=== PATIENT | female | born 1955 | race Caucasian/White ===

== ENCOUNTER 2017-04-20 05:34 | Outpatient (CLI) | payer BC ==
[~2017-04-20] VITALS: Ht 157.5 cm; Wt 128.1 kg
[~2017-04-20 05:34] MED LIST: CIPR-225 PO; CYCL10TA9 PO; FURO20TA4 PO; HYDR-3812 PO; HYOS0.1283 SL; LEVO50TA6 PO; LISI-552 PO; METR500T PO; NAPR500T PO; ONDA8TAB6 PO; OXYC-529 PO; PHEN200C3 PO; PHEN300C4 PO; SIMV20TA3 PO; TOPI100T11 PO
[2017-04-20] MEDS ORDERED: PHEN100C11 PO ×2 (11:56)
[2017-04-20] MEDS ORDERED: TOPI100T11 PO (11:56)
== END 2017-04-20 12:06 ==
LOC: PREOP 05:34
PROVIDERS: ATTEND Surgery
DX: Z01.818 Encounter for other preprocedural examination (principal); K43.2 Incisional hernia without obstruction or gangrene

== ENCOUNTER 2017-04-25 08:18 | Day surgery (SDC) | payer BC ==
[~2017-04-25] VITALS: Ht 157.5 cm; Wt 128.1 kg
[~2017-04-25 08:18] MED LIST changes: +PHEN100C11 PO
--- OUTSIDE RECORDS SUMMARY | 2017-04-25 08:28 | XMS REPORT ---
Author [facility] Address [address] [place] [address] Care Team Providers Care Car Shakeout Operator Name Role Phone DAVID SAHA Unavailable PROBLEMS Type Condition ICD9-CM Code [id number] Code Onset Dates Condition Status SNOMED Code Problem Benign essential hypertension I10 Active 9063384 Problem Hypothyroidism, unspecified type E03.9 Active 51488892 Problem PVD (peripheral vascular disease) I73.9 Active 465724948 Problem Pain in right knee M25.561 Active 57655230 Problem Pain in left knee M25.562 Active 678640677244428 Problem Morbid (severe) obesity due to excess calories E66.01 Active 290973369 Problem Seizure disorder G40.909 Active 720575016 Problem Osteoarthritis of both knees, unspecified osteoarthritis type M17.0 Active 204797908 Problem Hyperlipidemia, unspecified hyperlipidemia type E78.5 Active 39353199 Problem Edema, unspecified type R60.9 Active 483510621 Problem Primary osteoarthritis of both knees M17.0 Active 997162506 ALLERGIES Substance Reaction Event Type Date Status Darvocet A500 Unknown Drug Allergy October, Active Celebrex Unknown Drug Allergy October, Active SOCIAL HISTORY Never Assessed PLAN OF CARE Activity Details Follow Up 6 Months Reason:BP/edema VITAL SIGNS Height 62 in 2016-10-13 Weight 278.4 lbs 2016-10-13 Temperature 98.2 degrees Fahrenheit 2016-10-13 Heart Rate 72 bpm 2016-10-13 Respiratory Rate 18 2016-10-13 BMI 50.91 kg/m2 2016-10-13 Blood pressure systolic 122 mmHg 2016-10-13 Blood pressure diastolic 66 mmHg 2016-10-13 MEDICATIONS Medication Instructions Dosage Frequency Start Date End Date Duration Status Acetaminophen 500 MG Orally as needed for pain 2 capsules October, Active Levothyroxine Sodium 50 MCG TAKE ONE TABLET BY MOUTH DAILY. Active Hydrocodone-Acetaminophen 5-325 MG Orally 2 times a day 1 tablet as needed 12h Active Simvastatin 20 mg Orally Once a day 1 tablet in the evening 24h Active Lisinopril 20 mg Orally Once a day 1 tablet 24h Active Furosemide 20 mg Orally Once a day 1 tablet 24h Active Cyclobenzaprine HCl 10 MG Orally Three times a day 1 tablet 8h Active Phenytoin Sodium Extended 100 MG Orally Twice a day 2am and 3 in the pm capsule 12h Active Topiramate 100 MG Orally Twice a day 1 tablet 12h Active RESULTS Name Result Date Reference Range DILANTIN 2016-10-13 Phenytoin (Dilantin), Serum 15.3 10.0-20.0 CBC 2016-10-13 WBC 5.2 3.4-10.8 RBC 3.97 3.77-5.28 Hemoglobin 12.0 11.1-15.9 Hematocrit 36.7 34.0-46.6 MCV 92 79-97 MCH 30.2 26.6-33.0 MCHC 32.7 31.5-35.7 RDW 13.6 12.3-15.4 Platelets 222 150-379 Neutrophils 52 Lymphs 36 Monocytes 9 Eos 3 Basos 0 Immature Cells Neutrophils (Absolute) 2.7 1.4-7.0 Lymphs (Absolute) 1.9 0.7-3.1 Monocytes(Absolute) 0.5 0.1-0.9 Eos (Absolute) 0.2 0.0-0.4 Baso (Absolute) 0.0 0.0-0.2 Immature Granulocytes 0 Immature Grans (Abs) 0.0 0.0-0.1 NR Hematology Comments: LIPID PANEL 2016-10-13 Cholesterol, Total 165 100-199 Triglycerides 79 0-149 HDL Cholesterol 52 >39 VLDL Cholesterol True 16 5-40 LDL Cholesterol Calc 97 0-99 Comment: CMP 2016-10-13 Glucose, Serum 89 65-99 BUN 17 8-27 Creatinine, Serum 0.83 0.57-1.00 eGFR If NonAfricn Am 75 >59 eGFR If Africn Am 87 >59 BUN/Creatinine Ratio 20 12-28 Sodium, Serum 144 134-144 Potassium, Serum 4.5 3.5-5.2 Chloride, Serum 111 96-106 Carbon Dioxide, Total 23 18-29 Calcium, Serum 9.0 8.7-10.3 Protein, Total, Serum 6.4 6.0-8.5 Albumin, Serum 3.7 3.6-4.8 Globulin, Total 2.7 1.5-4.5 A/G Ratio 1.4 1.2-2.2 Bilirubin, Total 0.2 0.0-1.2 Alkaline Phosphatase, S 114 39-117 AST (SGOT) 9 0-40 ALT (SGPT) 6 0-32 PROCEDURES Procedure Date Ordered Result Body Site COMPLETE CBC W/AUTO DIFF WBC October 13, 2016 COMPREHEN METABOLIC PANEL October 13, 2016 ASSAY OF PHENYTOIN, TOTAL October 13, 2016 LIPID PANEL October 13, 2016 VENIPUNCT, ROUTINE* October 13, 2016 IMMUNIZATIONS No Known Immunizations MEDICAL (GENERAL) HISTORY Type Description Date Medical History seizures- dx age 53s. - MRI of brain showed mod atrophy and small vessel ischemic changes Medical History hypertension Medical History chronic bilat knee - Left knee xray 2014- severe DJD Medical History Moderate restrictive defect PFT 2010 Surgical History hysterectomy, total with bilateral salpingo-oophorectomy (BSO )- heavy bleeding Surgical History tubal ligation Surgical History tonsillectomy Surgical History Colonoscopy- normal 2011 Surgical History Cataract 08/2015 Surgical History cataract 09/2015 Surgical History [facility]el[facility] 11/30/15 Hospitalization History ED visit [facility] knee pain October 2014 Hospitalization History Cholecystitis, chronic calculous--[facility] 11/27/15
--- OUTSIDE RECORDS SUMMARY | 2017-04-25 08:29 | XMS REPORT ---
Author Author DAVID ASHA [facility] Address [address] [place] [address] Care Team Providers Care Caustic Mixer Name Role Phone DAVID SAHA Unavailable PROBLEMS Type Condition ICD9-CM Code [id number] Code Onset Dates Condition Status SNOMED Code Problem Benign essential hypertension I10 Active 4204462 Problem Hypothyroidism, unspecified type E03.9 Active 64479382 Problem PVD (peripheral vascular disease) I73.9 Active 600502052 Problem Pain in right knee M25.561 Active 60868886 Problem Pain in left knee M25.562 Active 964414576847373 Problem Morbid (severe) obesity due to excess calories E66.01 Active 247674437 Problem Seizure disorder G40.909 Active 149054457 Problem Osteoarthritis of both knees, unspecified osteoarthritis type M17.0 Active 946544476 Problem Hyperlipidemia, unspecified hyperlipidemia type E78.5 Active 50000826 Problem Edema, unspecified type R60.9 Active 273786717 Problem Primary osteoarthritis of both knees M17.0 Active 844775231 ALLERGIES No Information SOCIAL HISTORY Never Assessed PLAN OF CARE VITAL SIGNS MEDICATIONS Medication Instructions Dosage Frequency Start Date End Date Duration Status Phenytoin Sodium Extended 100 mg Orally Twice a day 2 capsules in the am and 3 capsules in the pm 12h 0 days Active RESULTS No Results PROCEDURES No Known procedures IMMUNIZATIONS No Known Immunizations MEDICAL (GENERAL) HISTORY [...] [facility] knee pain October 2014 Hospitalization History Cholecystitis, chronic calculous--[facility] 11/27/15
--- OUTSIDE RECORDS SUMMARY | 2017-04-25 08:29 | XMS REPORT ---
Author [facility] Address [address] [place] [address] Care Team Providers Care Collateral Specialist Name Role Phone DAVID SAHA Unavailable PROBLEMS Type Condition ICD9-CM Code [id number] Code Onset Dates Condition Status SNOMED Code Problem Benign essential hypertension I10 Active 9974997 Problem Hypothyroidism, unspecified type E03.9 Active 62856056 Problem PVD (peripheral vascular disease) I73.9 Active 257773019 Problem Pain in right knee M25.561 Active 74733972 Problem Pain in left knee M25.562 Active 332460582384008 Problem Morbid (severe) obesity due to excess calories E66.01 Active 273517623 Problem Seizure disorder G40.909 Active 080736902 Problem Osteoarthritis of both knees, unspecified osteoarthritis type M17.0 Active 849254552 Problem Hyperlipidemia, unspecified hyperlipidemia type E78.5 Active 90089254 Problem Edema, unspecified type R60.9 Active 175181056 Problem Primary osteoarthritis of both knees M17.0 Active 335838696 ALLERGIES No Information SOCIAL HISTORY Never Assessed PLAN OF CARE VITAL SIGNS MEDICATIONS Unknown Medications RESULTS No Results PROCEDURES No Known procedures [...] 08/2015 Surgical History cataract 09/2015 Surgical History [facility] Wolf[facility] 11/30/15 Hospitalization History ED visit [facility] knee pain October 2014 Hospitalization History Cholecystitis, chronic calculous--[facility] 11/27/15
[2017-04-25 08:35] VITALS: BP 131/57
--- NOTE | 2017-04-25 08:51 | Progress Note-Pre Operative ---
Pre-Operative Progress Note H&P Reviewed The H&P was reviewed, patient examined and no changes noted. Date Seen by Provider: Apr 25, 2017 Time Seen by Provider: 08:45 Date H&P Reviewed: Apr 25, 2017 Time H&P Reviewed: 08:50 Pre-Operative Diagnosis: Symptomatic ventral abdominal incisional hernia LARISSA LAUGHLIN APRN Apr 25, 2017 8:51 am
[2017-04-25] MEDS ORDERED: ONDANSETRON 4 MG/2 ML (SDV) Z0FRAN IVP PRN ×2 (09:00→14:30)
[2017-04-25] MEDS ORDERED: morphine INJ 10 MG/ML 1ML (SYR OR VIAL) IVP PRN ×2 (09:00→14:30)
[2017-04-25] MEDS ORDERED: FAMOTIDINE 20MG/2ML IV (PEPCID) IV ONE (09:00)
[2017-04-25 09:10] LABS: RED BLOOD COUNT 3.81 10^6/uL (4.35-5.85); RED CELL DISTRIBUTION WIDTH 13.1 % (10.0-14.5); WHITE BLOOD COUNT 5.2 10^3/uL (4.3-11.0)
[2017-04-25] MEDS ORDERED: ACETAMINOPHEN 325 MG TABLET/CAPLET (TYLENOL) PO PRN (09:15)
[2017-04-25] MEDS ORDERED: HYDROcodone/APAP 5 MG/325 MG (LORTAB) TAB PO ONE (09:15)
[2017-04-25] MEDS ORDERED: ceFAZolin 1 GM/NS 50 ML IVPB IV ONE ×2 (09:15)
[2017-04-25] MEDS ORDERED: CATHETER FLUSH 10 ML SYR IV PRN (09:15)
[2017-04-25] MEDS: LACTATED RINGERS 1,000 ML IV PRN ×2 (09:22→12:33)
[2017-04-25] MEDS ORDERED: BUP/EPI 0.5% 1:200,000 (MARCAINE) 10ML VIAL IJ ONE (11:35)
[2017-04-25] MEDS ORDERED: fentaNYL INJECTION 100 MCG/2 ML AMP ONE (11:46)
[2017-04-25] MEDS ORDERED: MIDAZOLAM 2 MG/2 ML (VERSED) VIAL ONE (11:46)
--- NOTE | 2017-04-25 13:48 | Progress Note-Post Operative ---
Post-Operative Progess Note Surgeon (s)/Fisheries Enforcement Officer (s) Surgeon SANJEEV VERA MD Fisheries Enforcement Officer: adrien aparicio DI[employer]OND CLEANER Pre-Operative Diagnosis Symptomatic ventral abdominal incisional hernia Post-Operative Diagnosis same(6x6cm) Procedure & Operative Findings Date of Procedure 04/25/17 Procedure Performed/Findings open ventral abdominal incisional hernia repair with mesh. Anesthesia Type GET Estimated Blood Loss Estimated blood loss (mL): minimal Specimens/Packing Specimens Removed hernia sac SANJEEV VERA MD Apr 25, 2017 1:48 pm
[2017-04-25] MEDS ORDERED: HYDR-3816 PO (13:51)
[2017-04-25] MEDS ORDERED: ROCURONIUM 50 MG/5 ML (ZEMURON) VIAL IV ONE ×2 (13:53)
[2017-04-25] MEDS ORDERED: ONDANSETRON 4 MG/2 ML (SDV) Z0FRAN ONE (13:53)
[2017-04-25] MEDS ORDERED: SEVOFLURANE (ULTANE) 15 ML INHAL SOLN ONE (13:53)
[2017-04-25] MEDS ORDERED: DEXAMETHASONE 10 MG/ML (DECADRON) 1 ML VIAL ONE (13:53)
--- NOTE | 2017-04-25 13:53 | Discharge Inst-Surgical ---
D/C Lap Instructions-CHUY New, Converted, or Re-Newed RX: RX on Chart Follow Up Appt in 2 weeks Activity as tolerated No driving for 24 hours No [address] while on pain medications Incentive Spirometry use every 2 hours while awake Regular Diet Symptoms to Report: Fever over 101 degree F, Nausea/Vomiting Infection Signs and Symptoms to report: Increased redness, Foul odor of wound, Increased drainage Bathing instructions: May shower Operative Area Clean/Dry; Keep incision clean/dry If any problems/questions: Contact your physician or go to Emergency Room SANJEEV VERA MD Apr 25, 2017 1:53 pm
[2017-04-25] MEDS ORDERED: KETOROLAC 30 MG/ML VIAL ONE (13:54)
[2017-04-25] MEDS ORDERED: proPOfol 200 MG/20 ML (DIPRIVAN) VIAL IV ONE (14:02)
[2017-04-25] MEDS ORDERED: LIDOCAINE PF 2% 5 ML (XYLOCAINE) VIAL ONE (14:02)
[2017-04-25] MEDS ORDERED: KETOROLAC 30 MG/ML VIAL IVP ONE (14:30)
[2017-04-25] MEDS ORDERED: PROMETHAZINE INJ 25 MG/ML (PHENERGAN) AMP IVP PRN (14:30)
[2017-04-25] MEDS ORDERED: HYDROmorphone (DILAUDID) 2 MG/ML VIAL IVP PRN (14:30)
[2017-04-25 15:10] VITALS: BP 131/57
[2017-04-25] MEDS ORDERED: HYDROcodone/APAP 10 MG/325 MG (LORTAB) TAB PO ONE (15:13)
[2017-04-25 15:15] VITALS: BP 131/57
[2017-04-25] MEDS ORDERED: HYDROcodone/APAP 5 MG/325 MG (LORTAB) TAB ONE (15:17)
[2017-04-25 15:40] VITALS: BP 103/58
--- NOTE | 2017-04-26 02:12 | OPERATIVE REPORT ---
DATE OF SERVICE: 04/25/2017 ATTENDING PRIMARY CARE PHYSICIAN: [facility]. PREOPERATIVE DIAGNOSIS: Symptomatic ventral abdominal incisional hernia incarcerated. POSTOPERATIVE DIAGNOSIS: Symptomatic ventral abdominal incisional hernia incarcerated with omentum within the hernia sac with a defect approximately 6 x 6 cm in size. PROCEDURE: Open ventral abdominal incisional hernia repair, which was incarcerated with mesh. SURGEON: Sanjeev Vera MD HELPER/DRIVER: Lui Chávez APRN ANESTHESIA: General endotracheal. ESTIMATED BLOOD LOSS: Minimal. FINDINGS: A large incisional hernia from a previous midline incision with a fascial defect approximately 6 x 6 cm in size with omentum within the hernia sac. This was incarcerated with no signs of strangulation. DISPOSITION: The patient tolerated the procedure well. INDICATIONS: The patient is a 61-year-old female who we had initially seen in 11/2015. Hydrops of the gallbladder was identified and she underwent a laparoscopic cholecystectomy on 11/30/2015. She was returned to the office for a dull pain in the left lower abdomen for some amount of time with episodes of nausea and vomiting. A CT scan was performed, which did show a significant size fat containing hernia. She had had a previous infraumbilical midline incision from a hysterectomy. Upon examination, she was found to have a large incarcerated incisional hernia, which was painful to palpation. DESCRIPTION OF PROCEDURE: The patient was brought to the operating room, laid supine on the table. After adequate IV pain and sedating medications and general endotracheal intubation, the abdomen was prepped and draped in standard surgical fashion. A 0.5% Marcaine with epinephrine was used to anesthetize the skin and subcutaneous tissue. A crescent-shaped skin incision was made along the left lateral umbilicus just inferior using a 15 blade. Subcutaneous tissue was then dissected using electrocautery. The hernia sac was identified and completely dissected out. This was a large incarcerated hernia; however, difficulty to detect the size due to the large size of her abdominal pannus. The fascial edges were then cleared using electrocautery as well as blunt dissection. The hernia sac was then opened using Metzenbaum scissors and completely excised using electrocautery and sent to pathology. Only omentum within the hernia sac. The omentum was then reduced back into the peritoneal cavity. There were omental as well as small bowel adhesions to the abdominal wall, which were taken down using a blunt dissection, Metzenbaum scissors as well as electrocautery with visualization of good hemostasis. A 16 x 11 cm coated polypropylene mesh was then placed into the defect. We then proceeded to place transfascial sutures to the mesh in a concentric manner approximating the mesh to the fascia without any tension. The subcutaneous tissue was then reapproximated using 3-0 Vicryl interrupted sutures. Skin was closed using 4-0 Monocryl with running subcuticular suture. The hernia defect site was then covered with tonsil sponges followed by a 4 x 4 gauze followed by a large Op-Site followed by a large abdominal binder. The patient tolerated the procedure well. We will start IV and oral pain medication as well as a clear liquid diet. Once she is tolerating clears and has good pain control with oral pain medications and ambulating well, we will discharge her home. We will also have her proceed with wearing the abdominal binder day and night for the next two weeks as well as to do no heavy lifting or exertion for the next six weeks. Job ID: [id number] DocumentID: [id number] Dictated Date: 04/25/2017 14:03:05 Halal Meat Packer Date: 04/26/2017 01:06:13 Dictated By: SANJEEV VERA MD
== END 2017-04-25 16:20 | disposition home or self-care (01) ==
LOC: SDC 08:18
PROVIDERS: ATTEND Surgery
DX: K43.0 Incisional hernia with obstruction, without gangrene (principal); G40.909 Epilepsy, unspecified, not intractable, without status epilepticus; M19.91 Primary osteoarthritis, unspecified site; I11.0 Hypertensive heart disease with heart failure; I50.9 Heart failure, unspecified; E78.00 Pure hypercholesterolemia, unspecified; E03.9 Hypothyroidism, unspecified; K21.9 Gastro-esophageal reflux disease without esophagitis; K57.30 Diverticulosis of large intestine without perforation or abscess without bleeding; E66.01 Morbid (severe) obesity due to excess calories; Z68.43 Body mass index [BMI] 50.0-59.9, adult; Z79.899 Other long term (current) drug therapy
CPT/HCPCS: 36415; 85027; 87081

== ENCOUNTER → 2018-07-10 | Outpatient (CLI) | payer BC, MEDICARE ==
[~2018-07-10] MED LIST changes: +ACHD5005 PO; +HYDR-34 PO; -HYDR-3812 PO; +NAPR-1071 PO; -NAPR500T PO
--- NOTE | 2018-07-10 12:26 | Diagnostic Imaging Report ---
INDICATION: 62-year-old female, postmenopausal. Screening for osteoporosis. COMPARISON: None. FINDINGS: AP Spine L1-L4: [BMD (g/cm2): 1.387] [T-Score: 1.6] [Z-Score: 2.0] [BMD Previous: N/A] [BMD % Change: N/A] LT Hip Neck: [BMD (g/cm2): 0.741] [T-Score: -2.1] [Z-Score: -1.4] LT Hip Total: [BMD (g/cm2):0.831] [T-Score:-1.4] [Z-Score: -1.0] [BMD Previous: N/A] [BMD % Change: N/A] RT Hip Neck: [BMD (g/cm2):0.789] [T-Score:-1.8] [Z-Score:-1.1] RT Hip Total: [BMD (g/cm2):0.820] [T-score:-1.5] [Z-Score:-1.1] [BMD Previous:N/A] [BMD % Change:N/A] *Indicates significant change from prior examination based on 95% confidence level. World Health Organization criteria for BMD interpretation classify patients as Normal (T-score at or above -1.0), Osteopenic (T-score between -1.0 and -2.5) or Osteoporotic (T-score at or below -2.5). LIMITATIONS AND MODIFICATION: None. FRACTURE RISK (FRAX SCORE): The ten year probability of (%): Major Osteoporotic Fracture: [8.8] Hip Fracture: [1.2] IMPRESSION: 1. Osteopenia (Low bone mass). 2. Baseline examination. 3. See below National Osteoporosis Foundation guidelines on when to potentially initiate pharmacologic therapy. Based on the National Osteoporosis Foundation Guidelines, pharmacologic treatment should be initiated in any of the following, unless clinical conditions suggest otherwise: * Any patient with prior fragility fracture of the hip or vertebrae. A spine fracture indicates 5X risk for subsequent spine fracture and 2X risk for subsequent hip fracture. * Osteoporosis (T-score <-2.5). * Postmenopausal women and men age 50 and older with low bone mass/osteopenia (T-score between -1.0 and -2.5) by DXA and 10-year major osteoporotic fracture greater than 20% or a 10-year probability of hip fracture greater than 3%. These fracture risks are supplied above in the FRAX score, if applicable. * Clinician judgement and/or patient preferences may indicate treatment for people with 10-year fracture probabilities above or below these levels. Dictated by: Dictated on workstation # [id number]
--- NOTE | 2018-07-11 21:13 | Diagnostic Imaging Report ---
INDICATION: Routine screening. Comparison is made with prior mammograms from 08/11/2011 and 08/16/2010. 2-D and 3-D bilateral screening mammography was performed with computer-aided Detection (CAD) system. FINDINGS: Scattered fibroglandular densities are identified bilaterally. There are benign calcifications throughout both breasts. Intramammary lymph node in the lower central left breast is again seen. No spiculated mass or malignant-appearing microcalcifications are identified. The axillae are unremarkable. IMPRESSION: No mammographic features suspicious for malignancy are identified. ACR BI-RADS Category 2: Benign findings. Result letter will be mailed to the patient. Note: At least 10% of breast cancer is not imaged by mammography. Dictated by: Dictated on workstation # [id number]
== END ==
LOC: RAD 09:30
PROVIDERS: ATTEND Nurse Practitioner Family
DX: Z12.31 Encounter for screening mammogram for malignant neoplasm of breast (principal); Z13.820 Encounter for screening for osteoporosis; M85.89 Other specified disorders of bone density and structure, multiple sites; Z78.0 Asymptomatic menopausal state
CPT/HCPCS: 77067; 77080